=== PATIENT | male | born 1950 ===

== ENCOUNTER 2019-03-25 10:38 | Emergency (ER) | payer OTHER ==
[2019-03-25] MEDS: CEFTRIAXONE 1 GM/50 ML (PMX) 50 ML IVPB (11:40)
[2019-03-25] MEDS: SOD CHLORIDE 0.9% 1,000 ML IV (11:40)
[2019-03-25] MEDS: LIDOCAINE 1% (MPF) 5 ML VIAL INJ (11:41)
[2019-03-25 11:52] LABS: ADD MAN DIFF? NO
[2019-03-25 11:54] LABS: BASOPHIL # 0.1 10^3/ul (0.0-0.1); BASOPHILS % 1.1 % (0.0-2.0); EOSINOPHILS # 0.9 10^3/ul (0.0-0.5); EOSINOPHILS % 8.6 % (0.0-7.0); HEMATOCRIT 47.3 % (42.0-52.0); HEMOGLOBIN 15.5 g/dl (14.0-18.0); LYMPHOCYTES # 4.1 10^3/ul (0.8-2.9); LYMPHOCYTES % 38.8 % (15.0-51.0); MEAN CORPUSCULAR HGB CONC 32.8 g/dl (32.0-37.0); MEAN CORPUSCULAR VOLUME 88.4 fl (82.0-101.0); MONOCYTE # 0.9 10^3/ul (0.3-0.9); MONOCYTES % 8.2 % (0.0-11.0); NEUTROPHIL # 4.5 10^3/ul (1.6-7.5); NEUTROPHILS % 42.5 % (39.0-77.0); PLATELET COUNT 312 10^3/UL (140-415); RED BLOOD COUNT 5.35 10^6/ul (4.70-6.10); RED CELL DISTRIBUTION WIDTH 12.1 % (11.5-14.5)
[2019-03-25 11:54] LABS: WHITE BLOOD COUNT 10.5 10^3/ul (4.8-10.8)
[2019-03-25 12:11] LABS: ALANINE AMINOTRANSFERASE 30 IU/L (13-69); ALBUMIN 4.8 g/dl (3.3-4.9); ALBUMIN/GLOBULIN RATIO 1.09; ALKALINE PHOSPHATASE 85 IU/L (42-121); ANION GAP 13 (5-13); ASPARTATE AMINO TRANSFERASE 35 IU/L (15-46); BILIRUBIN,INDIRECT 0.3 mg/dl (0-1.1); BILIRUBIN,TOTAL 0.3 mg/dl (0.2-1.3); BLOOD UREA NITROGEN 24 mg/dl (7-20); CALCIUM 10.6 mg/dl (8.4-10.2); CARBON DIOXIDE 29 mmol/L (21-31); CHLORIDE 101 mmol/L (97-110); CREATININE 1.75 mg/dl (0.61-1.24); Estimated GFR 39 mL/min (>60); GLUCOSE 98 mg/dl (70-220); LIPASE 252 U/L (23-300); POTASSIUM 4.8 mmol/L (3.5-5.1); SODIUM 143 mmol/L (135-144); TOTAL PROTEIN 9.2 g/dl (6.1-8.1)
[2019-03-25 12:40] LABS: ADD UMIC NO; UR ASCORBIC ACID NEGATIVE (NEGATIVE); UR BILIRUBIN (Dip) NEGATIVE (NEGATIVE); UR BLOOD (Dip) NEGATIVE (NEGATIVE); UR CLARITY CLEAR (CLEAR); UR COLOR COLORLESS (YELLOW); UR GLUCOSE (Dip) 3+ mg/dL (NEGATIVE); UR KETONES (Dip) NEGATIVE (NEGATIVE); UR LEUKOCYTE ESTERASE (Dip) NEGATIVE Leu/ul (NEGATIVE); UR NITRITE (Dip) NEGATIVE (NEGATIVE); UR TOTAL PROTEIN (Dip) NEGATIVE (NEGATIVE); UR UROBILINOGEN (Dip) NEGATIVE (NEGATIVE)
== END 2019-03-25 15:20 | disposition home or self-care (01) ==
LOC: FTE 10:38
DX: L02.31 Cutaneous abscess of buttock (principal)
CPT/HCPCS: 36415; 76536; 80053; 81003; 83690; 85025; 96361; 96365; 99285-25